=== PATIENT | female | born 1980 | race American Indian/Alaskan Native ===

== ENCOUNTER 2016-06-30 11:38 | Emergency (ER) | payer OTHER ==
[2016-06-30 12:35] LABS: Basophils % (Auto) 0.6 % (0.0-1.8); Eosinophils % (Auto) 1.9 % (0.0-4.3); Hematocrit 44.2 % (30.3-42.9); Hemoglobin 14.7 gm/dl (10.1-14.3); Mean Corpuscular HGB Conc 33 % (30-34); Mean Corpuscular Hemoglobin 31 pg (28-32); Mean Corpuscular Volume 94 fl (79-97); Platelet Count 197 K/mm3 (140-440); Red Blood Count 4.69 M/mm3 (3.65-5.03); Red Cell Distribution Width 13.6 % (13.2-15.2); White Blood Count 7.5 K/mm3 (4.5-11.0)
--- NOTE | 2016-06-30 12:36 | Emergency Department Report ---
Entered by JOSELIN BELTRÁN, acting as scribe for ANDREW CAMPBELL NP. Chief Complaint: Abdominal Pain Stated Complaint: LWR ABD PAIN Time Seen by Provider: 06/30/16 12:10 - HPI History of Present Illness: 35 y/o female who is non-toxic, in no acute distress, not ill appearing presents with c/o waxing and waning right lower abdominal pain for 3-4 weeks. Notes she lifts heavy items at work. Improves with Midol and heat therapy, worsens wtih movement and touching area. Denies N/V/D, constipation, fever, chills, chest pain, SOB. - ROS Review of Systems: Reports right lower abdominal pain. Denies fever, chills, constipation, N/V/D, chest pain, SOB. - Exam Vital Signs: Vital Signs 06/30/16 11:58 Temperature 98.4 F Pulse Rate 67 Respiratory 18 Rate Blood Pressure 116/74 O2 Sat by Pulse 100 Oximetry Physical Exam: Constitutional: Non toxic, NAD. Abdomen: TTP and distention to RLQ. Positive McBurney's point tenderness. No epigastric tenderness. Bowel sounds are normal in all quadrants. MSE screening note: Focused history and physical exam performed. Due to findings the following was ordered:CT A/P w/ contrast, amylase, lipase, CBC, CMP, serum HCG qualitative ED Medical Decision Making - Lab Data Result diagrams: 06/30/16 12:18 ED Disposition for MSE Condition: Stable Instructions: Abdominal Pain (ED) This documentation as recorded by the scribe,JOSELIN BELTRÁN,accurately reflects the service I personally performed and the decisions made by de,ANDREW CAMPBELL, [place].
[2016-06-30 13:00] LABS: Alanine Aminotransferase 13 units/L (7-56); Albumin 4.5 g/dL (3.9-5); Albumin/Globulin Ratio 1.5 %; Alkaline Phosphatase 113 units/L (35-129); Amylase 64 units/L (27-131); Anion Gap 18 mmol/L; BUN/Creatinine Ratio 13.33; Blood Urea Nitrogen 8 mg/dL (7-17); Calcium 9.1 mg/dL (8.4-10.2); Carbon Dioxide 21 mmol/L (22-30); Chloride 103.9 mmol/L (98-107); Glucose 91 mg/dL (65-100); Lipase 37 units/L (13-60); Potassium 3.9 mmol/L (3.6-5.0); Sodium 139 mmol/L (137-145); Total Protein 7.5 g/dL (6.3-8.2)
[2016-06-30 13:18] LABS: Bilirubin,Urine NEG (Negative); Blood,Urine LG (Negative); Ketones,Urine NEG (Negative); Leukocyte Esterase,Urine NEG (Negative); Mucus,Urine FEW /HPF; Nitrite,Urine NEG (Negative); Urobilinogen,Urine < 2.0 mg/dL (<2.0)
[2016-06-30] MEDS ORDERED: MOTRIN PO ONE (15:18)
[2016-06-30] MEDS ORDERED: MORPHINE IV ONE (22:23)
[2016-07-01] MEDS ORDERED: NACL ONE (00:03)
--- NOTE | 2016-07-01 00:59 | Cat Scan Report ---
FINAL REPORT PROCEDURE: CT ABDOMEN PELVIS W CON TECHNIQUE: Computerized axial tomography of the abdomen and pelvis was performed after the IV injection of iodinated nonionic contrast. HISTORY: pain rlq pain COMPARISON: No prior studies are available for comparison. FINDINGS: Visualized lower thorax: No significant abnormality. Liver: Normal size and attenuation. Spleen: Normal size and attenuation. Gallbladder and biliary system: Normal. Pancreas: Normal. Adrenals: Normal. Kidneys: Normal. GI tract: The stomach is normal. The small bowel has a normal caliber. No obstruction, ileus or enteritis. The cecum, appendix and colon are normal.. Lymph nodes and mesentery: Normal. Vasculature: Normal. Bladder: Normal. Reproductive organs: There is a large mass extending up out of the pelvis in this patient. There are some calcifications in septations identified. The mass size is 21 x 15 x 17 centimeters. This and may arise off the uterus or 1 of the ovaries. There are some calcifications identified in the lower pelvic mass. This could represent multiple fibroids. Benign and malignant entities are within the differential. A mass of this size is may represent a benign uterine tumor or benign ovarian tumor. Further imaging differentiation with MRI may be of benefit.. Peritoneum: Minimal fluid in the lower pelvis.. Musculoskeletal structures: No significant abnormality. Other: None. IMPRESSION: Large mass extending up out of the pelvis measuring up to 21 centimeters. This may arise off the uterus or 1 of the ovaries. There are some calcifications and septations identified. Benign and malignant etiologies are within the differential. With a mass of this size benign entities are typical. Minimal fluid identified in the lower pelvis. Appropriate gynecological consultation is recommended. No evidence of intestinal or urinary tract obstruction. No ileus or enteritis. The appendix is normal. The above findings are discussed with the patient's ER provider at the time of dictation 8434 central standard time on 06/30/2016
--- NOTE | 2016-07-01 01:37 | Emergency Department Report ---
HPI - General Chief Complaint: Abdominal Pain Time Seen by Provider: 06/30/16 22:03 - HPI HPI: This is a 35-year-old Afro-[place] female who presents to the emergency department, driving himself in to be seen, with complaint of a 3 to four-week history of intermittent lower abdominal pain. The pain recently worsened and this occurred about the same time that the patient started her menstrual cycle. She tried some Midol for her pain without any relief. She denies any nausea, vomiting, vaginal discharge, dysuria, back pain. 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 She is a tobacco smoker. She has a history of seizures. She does not have a primary care doctor. No recent travel or sick contacts at home. ED Past Medical Hx - Past Medical History Previous Medical History?: Yes Hx Seizures: Yes Additional medical history: Heart murmur - Surgical History Past Surgical History?: No - Social History Smoking Status: Current Every Day Smoker Substance Use Type: Alcohol, Marijuana - Medications Home Medications: Home Medications Medication Instructions Recorded Confirmed Last Taken Type Acetaminophen/Codeine 1 tab PO Q6H PRN #30 tab 01/03/14 Unknown Rx [Acetaminophen-Codeine #3 TAB] Cyclobenzaprine [Flexeril 10mg] 10 mg PO TID PRN #30 tablet 01/03/14 Unknown Rx Ibuprofen [Motrin] 600 mg PO Q8H PRN #50 tablet 01/03/14 Unknown Rx HYDROcodone/APAP 5-325 [[place] 1 each PO Q6HR PRN #14 tablet 07/01/16 Unknown Rx 5/325] ED Review of Systems ROS: Stated complaint: LWR ABD PAIN Other details as noted in HPI Comment: All other systems reviewed and negative Constitutional: denies: chills, fever Eyes: denies: eye pain, eye discharge, vision change ENT: denies: ear pain, throat pain Respiratory: denies: cough, shortness of breath, wheezing Cardiovascular: denies: chest pain, palpitations Gastrointestinal: abdominal pain. denies: nausea, vomiting Genitourinary: denies: urgency, dysuria, discharge Musculoskeletal: denies: back pain, joint swelling, arthralgia Skin: denies: rash, lesions Neurological: denies: headache, weakness, paresthesias Physical Exam - Physical Exam Vital Signs: Vital Signs 06/30/16 06/30/16 06/30/16 11:58 15:23 17:05 Temperature 98.4 F 98.6 F Pulse Rate 67 65 Respiratory 18 18 20 Rate Blood Pressure 116/74 121/74 Blood Pressure [Left] O2 Sat by Pulse 100 Oximetry 06/30/16 22:55 Temperature Pulse Rate 88 Respiratory 18 Rate Blood Pressure Blood Pressure 113/75 [Left] O2 Sat by Pulse Oximetry Physical Exam: GENERAL: The patient is well-developed well-nourished. HEENT: Normocephalic. Atraumatic. Extraocular motions are intact. Patient has moist mucous membranes. Pupils equal reactive to light bilaterally. NECK: Supple. Trachea is midline. CHEST/LUNGS: Clear to auscultation. There is no respiratory distress noted. HEART/CARDIOVASCULAR: Regular. There is no tachycardia. There is no gallop rub or murmur. ABDOMEN: Abdomen is soft. There is some tenderness to palpation to the lower quadrants of the abdomen. There is a firm masslike density felt to the lower half of the abdomen with some mild abdominal distention. Patient has normal bowel sounds. SKIN: Skin is warm and dry. NEURO: The patient is awake, alert, and oriented. The patient is cooperative. The patient has no focal neurologic deficits. The patient has normal speech. MUSCULOSKELETAL: There is no tenderness or deformity. There is no limitation range of motion. There is no evidence of acute injury. ED Course Vital Signs 06/30/16 06/30/16 06/30/16 11:58 15:23 17:05 Temperature 98.4 F 98.6 F Pulse Rate 67 65 Respiratory 18 18 20 Rate Blood Pressure 116/74 121/74 Blood Pressure [Left] O2 Sat by Pulse 100 Oximetry 06/30/16 22:55 Temperature Pulse Rate 88 Respiratory 18 Rate Blood Pressure Blood Pressure 113/75 [Left] O2 Sat by Pulse Oximetry ED Medical Decision Making - Lab Data Result diagrams: 06/30/16 12:18 06/30/16 12:18 - Radiology Data Radiology results: report reviewed CT of the abdomen and pelvis with IV contrast shows a large mass extending up out of the pelvis measuring up to 21 cm. This may arise of the uterus or one of the ovaries. There are some calcifications and septations identified. Benign and malignant etiologies are within the differential. With a mass of the size benign entities are typical. Minimal fluid identified in the lower pelvis. Appropriate gynecological consultation is recommended. No evidence of intestinal or urinary tract obstruction. Ileus or enteritis. The appendix is normal. - Medical Decision Making 35 old female presents with a 3 to four-week history of intermittent lower abdominal discomfort. On physical exam there is a masslike density in the lower portion of the abdomen that almost feels consistent with a gravid uterus, except for the patient has a negative test here. Her labs are mostly unremarkable. A CT of the abdomen and pelvis with IV contrast was done that showed a 21 cm pelvic mass. Radiology feels that this is most likely benign in etiology but malignancy still must be ruled out as well and the patient will need a gynecological consultation. She will be given multiple [facility] referrals and she'll be given some pain medication. She has been encouraged to return to the emergency department with any worsening of her symptoms or any acute distress. - Differential Diagnosis malignancy, , fibroid Critical Care Time: No Critical care attestation.: If time is entered above; I have spent that time in minutes in the direct care of this critically ill patient, excluding procedure time. ED Disposition Clinical Impression: Pelvic mass Abdominal pain Qualifiers: Abdominal location: lower abdomen, unspecified Qualified Code(s): R10.30 - Lower abdominal pain, unspecified Disposition: DISCHARGED TO HOME OR SELFCARE Is pt being admited?: No Condition: Stable Instructions: Abdominal Pain (ED) Additional Instructions: You were seen today and found to have a large pelvic mass. You have been given multiple referrals for [facility] physicians and/or groups and it is imperative that he follow up for further evaluation of this CT finding. Return to the emergency department with any worsening of your symptoms or any acute distress. You've been prescribed a medication that is sedating. Therefore this medication cannot be mixed with alcohol, or taken prior to driving, working, or being responsible for children. Prescriptions: HYDROcodone/APAP 5-325 [[place] 5/325] 1 each PO Q6HR PRN #14 tablet PRN Reason: Pain Referrals: PRIMARY CARE, [Primary Care Provider] - 3-5 Days [facility] [Provider Group] - 3-5 Days [facility] [Provider Group] - 3-5 Days [facility] [Provider Group] - 3-5 Days Time of Disposition: 01:39
[2016-07-01 02:09] VITALS: BP 116/65
== END 2016-07-01 02:09 | disposition home or self-care (01) ==
LOC: ED 11:38
DX: R10.30 Lower abdominal pain, unspecified (principal); R19.09 Other intra-abdominal and pelvic swelling, mass and lump; R56.9 Unspecified convulsions; R01.1 Cardiac murmur, unspecified; F12.10 Cannabis abuse, uncomplicated; F17.200 Nicotine dependence, unspecified, uncomplicated
CPT/HCPCS: 36415; 74177; 80053; 81001; 82150; 83690; 84703; 85025; 96374; 99284; J2270; Q9967